=== PATIENT | male | born 1990 | race Caucasian/White ===

== ENCOUNTER 2021-02-02 11:40 | Outpatient (REF) | payer BC, SELFPAY ==
[2021-02-03 11:36] LABS: Varicella IgG Antibody Positive (See Note)
== END 2021-02-02 11:41 | disposition home or self-care (01) ==
LOC: LBN 11:40
PROVIDERS: PCP Family Medicine; Visit Provider Nurse Practitioner
DX: Z11.59 Encounter for screening for other viral diseases (principal)
CPT/HCPCS: 86787

== ENCOUNTER 2021-02-26 02:53 | Outpatient (CLI) | payer BC, SELFPAY ==
[2021-02-26 12:22] LABS: ALT 29 U/L (16-63); AST 15 U/L (15-37); Albumin 4.4 g/dL (3.4-5.0); Alkaline Phosphatase 63 U/L (46-116); Bilirubin, Direct 0.1 mg/dL (0.0-0.2); Bilirubin, Total 0.3 mg/dL (0.2-1.0); Glucose 82 mg/dL (74-106); Total Protein 7.6 g/dL (6.4-8.2)
[2021-02-26 12:36] LABS: Calculated LDL 216 mg/dL (<100); Cholesterol 293 mg/dL (<200); HDL Cholesterol 50 mg/dL (40-60); Triglyceride 137 mg/dL (<150)
== END 2021-02-26 02:54 | disposition home or self-care (01) ==
LOC: LBO 02:53
PROVIDERS: PCP Family Medicine; Visit Provider Family Medicine
DX: E78.5 Hyperlipidemia, unspecified (principal); R73.9 Hyperglycemia, unspecified; G72.89 Other specified myopathies
CPT/HCPCS: 36415; 80061; 80076; 82947

== ENCOUNTER 2021-08-18 18:45 | Outpatient (REF) | payer BC, SELFPAY ==
[2021-08-19 15:33] LABS: COVID-19 RT-PCR UVMMC Result Negative (Negative)
== END 2021-08-18 18:46 | disposition home or self-care (01) ==
LOC: LBN 18:45
PROVIDERS: PCP Family Medicine; Visit Provider Family Medicine
DX: Z20.822 Contact with and (suspected) exposure to COVID-19 (principal)
CPT/HCPCS: U0003

== ENCOUNTER 2023-07-05 11:29 | Outpatient (CLI) | payer BC, SELFPAY ==
[2023-07-05 12:52] LABS: Calculated LDL 210 mg/dL (<100); Cholesterol 307 mg/dL (<200); Glucose 96 mg/dL (74-106); HDL Cholesterol 49 mg/dL (40-60); Triglyceride 240 mg/dL (<150)
== END 2023-07-05 11:30 | disposition home or self-care (01) ==
LOC: LOS 11:29
PROVIDERS: PCP Family Medicine; Visit Provider Family Medicine
DX: R73.9 Hyperglycemia, unspecified (principal); E78.5 Hyperlipidemia, unspecified
CPT/HCPCS: 36415; 80061; 82947

== ENCOUNTER 2025-03-11 01:35 | Outpatient (CLI) | payer BC, SELFPAY ==
[2025-03-14 09:28] LABS: ALT 28 U/L (7-55); ActiTest Grade A0; ActiTest Interpretation no activity; ActiTest Score 0.10; Apoliprotein A1 144 mg/dL (>=120); Bilirubin, Total <0.2 mg/dL (0.0 - 1.2); FibroTest Interpretation no fibrosis; FibroTest Score 0.06; FibroTest Stage F0; GGT 22 U/L (8 - 61)
[2025-03-17 17:16] LABS: Apolipoprotein B, Serum 151 mg/dL; Beta VLDL Cholesterol Not Detected mg/dL (<15); Beta VLDL Triglycerides Not Detected mg/dL (<15); Cholesterol, Total, CDC 315 mg/dL; Chylomicron Cholesterol Not Detected; Chylomicron Triglycerides Not Detected; HDL Cholesterol, CDC 51 mg/dL (>=40); LpX Not detected; Triglycerides, CDC 108 mg/dL; VLDL Triglycerides 45 mg/dL (<120)
== END 2025-03-11 01:36 | disposition home or self-care (01) ==
LOC: LOS 01:35
PROVIDERS: PCP Family Medicine; Visit Provider Family Medicine
DX: E78.49 Other hyperlipidemia (principal); R74.8 Abnormal levels of other serum enzymes
CPT/HCPCS: 36415; 80061; 81596; 83695; 82172; 82664